=== PATIENT | female | born 1965 | race African-American/Black ===

== ENCOUNTER 2025-05-30 16:24 | Emergency (ER) | payer OTHER, SELFPAY ==
[~2025-05-30] VITALS: Ht 157.5 cm; Wt 91.2 kg
--- NOTE | 2025-05-30 17:42 | ED.PDOC ---
Eye-HPI HPI Comments 59-year-old female presents to the ER with a chief complaint of tooth pain. Patient reports on having left upper tooth pain which started yesterday. Patient notes that she has not scheduled an appointment with a dentist but we will do so. Denies chills, fever, N/V/D, SOB, CP. No other associated symptoms, modifiers, recent injuries or sick contacts present at this time. Chief Complaint: Tooth Pain Time Seen by MD: 17:40 Primary Care Provider: SASHA Preston Notes: Nurses Notes, Medications, Allergies Allergies: Coded Allergies: Tramadol (Verified Allergy, Unknown, 05/30/25) Home Meds Active Scripts Cefdinir (Cefdinir) 300 Mg Cap, 300 MG PO BID for 10 Days, #20 CAP Prov:CAIT SAAVEDRA MD 05/30/25 Naproxen (Naproxen) 375 Mg Tab, 375 MG PO TID for 10 Days, #30 TAB Prov:CAIT SAAVEDRA MD 05/30/25 Information Source: Patient Mode of Arrival: Ambulatory Timing: Hours Duration: Since onset, Hours Prehospital treatment: None Quality: Pain Lids: Normal Conjunctiva: Normal Cornea: Normal Pupils: Normal EOM: Normal Fundus: Normal Slit lamp exam: Normal Anterior chamber: Normal Mouth: Normal ENT Ear Exam: Normal, Normal, Normal Nose: Normal Sinuses: Normal Oropharynx: Normal Onset: Spontaneous Throat Exposed to: None Associated signs and symptoms: Tooth Pain Past Medical History PAST MEDICAL HISTORY: Denies Surgical History: Denies all surgeries BLADE OPERATOR History: No Pertinent BLADE OPERATOR History Family History Family History: Reviewed,noncontributory to illness, Unknown Social History Smoker: Non-Smoker Alcohol: Denies ETOH Use Drugs: Denies Drug Use Lives In: Home Constitutional: denies: chills, diaphoresis, fatigue, fever, malaise, sweats, weakness, others EENTM: reports: mouth pain; denies: blurred vision, double vision, ear bleeding, ear discharge, ear drainage, ear pain, ear ringing, eye pain, eye redness, hearing loss, mouth swelling, nasal discharge, nose bleeding, nose congestion, nose pain, photophobia, tearing, throat pain, throat swelling, voice changes, others Respiratory: denies: cough, hemoptysis, orthopnea, SOB at rest, shortness of breath, SOB with excertion, stridor, wheezing, others Cardiovascular: denies: chest pain, dizzy spells, diaphoresis, Dyspnea on exertion, edema, irregular heart beat, left arm pain, lightheadedness, palpitations, PND, syncope, others Gastrointestinal: denies: abdomen distended, abdominal pain, blood streaked bowels, constipated, diarrhea, dysphagia, difficulty swallowing, hematemesis, melena, nausea, poor appetite, poor fluid intake, rectal bleeding, rectal pain, vomiting, others Genitourinary: denies: abnormal vagina bleeding, burning, dyspareunia, dysuria, flank pain, frequency, hematuria, incontinence, pain, , vagina discharge, urgency, others Neurological: denies: dizziness, fainting, headache, left sided numbness, left sided weakness, numbness, paresthesia, pre-existing deficit, right sided numbness, right sided weakness, seizure, speech problems, tingling, tremors, weakness, others Musculoskeletal: denies: back pain, gout, joint pain, joint swelling, muscle pain, muscle stiffness, neck pain, others Integumetry: denies: bruises, change in color, change in hair/nails, dryness, laceration, lesions, lumps, rash, wounds, others Allergic/Immunocompromised: denies: Difficulty Healing, Frequent Infections, Hives, Itching, others Hematologic/Lymphatic: denies: anemia, blood clots, easy bleeding, easy bruising, swollen glands, others Endocrine: denies: excessive hunger, excessive sweating, excessive thirst, excessive urination, flushing, intolerance to cold, intolerance to heat, unexplained weight gain, unexplained weight loss, others Psychiatric: denies: anxiety, bipolar disorder, depression, hopeless, panic disorder, schizophrenia, sleepless, suicidal, others All Other Systems: Reviewed and Negative Physical Exam General Appearance: Moderate Distress, Obese HEENT: Normal ENT Inspection, PERRL/EOMI, Pharynx Normal, TMs Normal, Other (Caries of the upper teeth on the left side) Neck: Full Range of Motion, Non-Tender, Normal, Normal Inspection Respiratory: Chest Non-Tender, Lungs Clear, No Accessory Muscle Use, No Respiratory Distress, Normal Breath Sounds Cardiovascular: No Edema, No JVD, No Murmur, No Gallop, Normal Peripheral Pulses, Regular Rate/Rhythm Breast Exam: Deferred Gastrointestinal: No Organomegaly, Non Tender, No Pulsatile Mass, Normal Bowel Sounds, Soft Genitalia: Deferred Pelvic: Deferred Rectal: Deferred Extremities: No calf tenderness, Normal capillary refill, Normal inspection, Normal range of motion, Non-tender, No pedal edema Musculoskeletal : Apperance: Normal Neurologic: Alert, chain repairer II-XII nml as Tested, No Motor Deficits, Normal Affect, Normal Mood, No Sensory Deficits Cerebellar Function: Normal Reflexes: Normal Skin: Dry, Normal Color, Warm Peripheral Pulses: 1+ carotid (R), 1+ carotid (L) Lymphatic: No Adenopathy Was a procedure done? Was a procedure done?: No EENT DIFF Eye: Other Ear: N/A Nose: N/A Mouth: N/A Sore Throat: N/A Other Differential Diagnosis Tooth pain in infection X-Ray, Labs, Meds, VS Vital Signs Date Time Temp Pulse Resp B/P (MAP) Pulse Ox O2 Delivery O2 Flow Rate FiO2 05/30/25 17:43 98.2 73 18 133/81 (98) 98 98.2 05/30/25 17:43 73 18 98 Room Air 05/30/25 16:28 99.1 88 18 124/77 98 99.1 X-Ray, Labs, Meds, VS Comment 59-year-old female presented to the [facility] because of tooth infection and she has no money she said to pay for dentist suggested that she goes to [place] Time of 1ST Reevaluation: 18:10 Reevaluation 1ST: Unchanged Time of 2ND Reevaluation: 17:49 Reevaluation 2ND: Unchanged Consultation: PCP, Other Patient Education/Counseling: Diagnosis, Treatment, Prognosis, Need For Follow Up Family Education/Counseling: Diagnosis, Treatment, Prognosis, Need For Follow Up, No Family Present SEPSIS Sepsis Screen Date sepsis recognized/suspect: May 30, 2025 Time Sepsis recognized/suspect: 1630 Recent Procedure: No On Antibiotic Therapy: No Respiratory Rate >20: No Heart Rate >90: No Temp<36 C (96.8 F) or >38.3 C: No SBP <90 or MAP <65 mmHG: No New Acute Mental Status Change: No Is the patient on CPAP, BIPAP,: No Vital Signs Date Time Temp Pulse Resp B/P (MAP) Pulse Ox O2 Delivery O2 Flow Rate FiO2 05/30/25 17:43 98.2 73 18 133/81 (98) 98 98.2 05/30/25 17:43 73 18 98 Room Air 05/30/25 16:28 99.1 88 18 124/77 98 99.1 Departure 1 Departure Time of Disposition: 17:50 Impression: Primary Impression: Infection of tooth Disposition: HOME / SELF CARE / HOMELESS Condition: Fair Additional Instructions: Mouthwash with peroxide e-Prescriptions Cefdinir (Cefdinir) 300 Mg Cap 300 MG PO BID for 10 Days, #20 CAP Prov: CAIT SAAVEDRA MD 05/30/25 Naproxen (Naproxen) 375 Mg Tab 375 MG PO TID for 10 Days, #30 TAB Prov: CAIT SAAVEDRA MD 05/30/25 Discharged With: Self Critical Care Note Critical Care Time?: No Stability Stability form required: No Heart Score Heart Score: Heart Score Response (Comments) Value History N/A 0 EKG N/A 0 Age 45-64 1 Risk Factors No known risk factors 0 Troponin N/A 0 Total 1 I personally scribed for CAIT SAAVEDRA MD ([email or web address]) on 05/30/25 at 17:42. Elec tronically submitted by [employer] ([email or web address]). CAIT SAAVEDRA MD May 30, 2025 17:42
[2025-05-30 17:43] VITALS: BP 133/81; PULSE 73; RESP 18; TEMP 98.2; O2SAT 98
[2025-05-30] MEDS ORDERED: CEFD300C2 PO (17:52)
[2025-05-30] MEDS ORDERED: NAPR-957 PO (17:52)
== END 2025-05-30 18:11 | disposition home or self-care (01) ==
LOC: ER 16:26
DX: K04.7 Periapical abscess without sinus (principal); Z88.5 Allergy status to narcotic agent

== ENCOUNTER 2025-06-03 18:07 | Emergency (ER) | payer SELFPAY ==
[~2025-06-03] VITALS: Ht 157.5 cm; Wt 91.4 kg
[~2025-06-03 18:07] MED LIST: CEFD300C2 PO; NAPR-957 PO
[2025-06-03] MEDS ORDERED: AMOX875T4 PO (18:21)
[2025-06-03] MEDS ORDERED: IBUP-1456 PO (18:21)
--- NOTE | 2025-06-03 18:21 | ED.PDOC ---
Eye-HPI HPI Comments 59-YEAR-OLD FEMALE PRESENTS TO ER WITH COMPLAINTS OF LEFT-SIDED TOOTHACHE PAIN X1 WEEK. PATIENT REPORTS THAT SHE HAS BEEN EXPERIENCING LEFT UPPER TOOTHACHE PAIN X1 WEEK. SHE RATES HER CURRENT PAIN A 9/10 AND REPORTS THAT SHE WAS SEEN AND EVALUATED IN ER HERE FOUR DAYS AGO FOR HER SYMPTOMS AND PRESCRIBED CEFDINIR ANTIBIOTICS THAT SHE HAS BEEN TAKING WITHOUT RELIEF. NOTES SHE HAS NOT BEEN ABLE TO FOLLOW UP WITH A DENTIST YET DUE TO "INSURANCE ISSUES" AND PRESENTS TO ER AMBULATORY ON ARRIVAL, IN NO DISTRESS WITH VITALS STABLE. DENIES FEVER, BODY ACHES, CHILLS, HEADACHE, NAUSEA/VOMITING, FACIAL SWELLING/SKIN CHANGES OR ANY FURTHER SYMPTOMS/COMPLAINTS Chief Complaint: Abscess Time Seen by MD: 18:13 Primary Care Provider: SASHA Preston Notes: Nurses Notes, Medications, Allergies Allergies: Coded Allergies: Tramadol (Verified Allergy, Unknown, 05/30/25) Home Meds Active Scripts Ibuprofen (Ibuprofen) 800 Mg Tab, 1 TAB PO TID PRN, #30 TAB 0 Refills Prov:FARIBA PETERSEN 06/03/25 Amoxicillin & Pot Clavulanate (Amoxicillin/Potassium Cla) 875 Mg Tab, 1 TAB PO BID for 7 Days, #14 TAB 0 Refills Prov:FARIBA PETERSEN 06/03/25 Cefdinir (Cefdinir) 300 Mg Cap, 300 MG PO BID for 10 Days, #20 CAP Prov:CAIT SAAVEDRA MD 05/30/25 Naproxen (Naproxen) 375 Mg Tab, 375 MG PO TID for 10 Days, #30 TAB Prov:CAIT SAAVEDRA MD 05/30/25 Information Source: Patient Mode of Arrival: Ambulatory Past Medical History PAST MEDICAL HISTORY: Denies Surgical History: Denies all surgeries SAND WORKER History: No Pertinent SAND WORKER History Family History Family History: Unknown Social History Smoker: Non-Smoker Alcohol: Denies ETOH Use Drugs: Denies Drug Use Lives In: Home Constitutional: denies: chills, diaphoresis, fatigue, fever, malaise, sweats, weakness, others EENTM: reports: others ( STATED IN HPI) Respiratory: denies: cough, hemoptysis, orthopnea, SOB at rest, shortness of breath, SOB with excertion, stridor, wheezing, others Cardiovascular: denies: chest pain, dizzy spells, diaphoresis, Dyspnea on exertion, edema, irregular heart beat, left arm pain, lightheadedness, palpitations, PND, syncope, others Gastrointestinal: denies: abdomen distended, abdominal pain, blood streaked bowels, constipated, diarrhea, dysphagia, difficulty swallowing, hematemesis, melena, nausea, poor appetite, poor fluid intake, rectal bleeding, rectal pain, vomiting, others Genitourinary: denies: abnormal vagina bleeding, burning, dyspareunia, dysuria, flank pain, frequency, hematuria, incontinence, pain, , vagina discharge, urgency, others Neurological: denies: dizziness, fainting, headache, left sided numbness, left sided weakness, numbness, paresthesia, pre-existing deficit, right sided numbness, right sided weakness, seizure, speech problems, tingling, tremors, weakness, others Musculoskeletal: denies: back pain, gout, joint pain, joint swelling, muscle pain, muscle stiffness, neck pain, others Integumetry: denies: bruises, change in color, change in hair/nails, dryness, laceration, lesions, lumps, rash, wounds, others Allergic/Immunocompromised: denies: Difficulty Healing, Frequent Infections, Hives, Itching, others Hematologic/Lymphatic: denies: anemia, blood clots, easy bleeding, easy bruising, swollen glands, others Endocrine: denies: excessive hunger, excessive sweating, excessive thirst, excessive urination, flushing, intolerance to cold, intolerance to heat, unexplained weight gain, unexplained weight loss, others Psychiatric: denies: anxiety, bipolar disorder, depression, hopeless, panic dis order, schizophrenia, sleepless, suicidal, others Physical Exam General Appearance: No Apparent Distress, Obese HEENT: PERRL/EOMI, Pharynx Normal, TMs Normal, Other (BROKEN LEFT UPPER WISDOM TOOTH NOTED WITH MILD SURROUNDING GUM ERYTHEMA/SWELLING, NO DRAINAGE/BLEEDING NOTED. NO FACIAL SWELLING/SKIN CHANGES APPRECIATED) Neck: Full Range of Motion, Non-Tender, Normal Respiratory: Chest Non-Tender, Lungs Clear, No Accessory Muscle Use, No Respiratory Distress, Normal Breath Sounds Cardiovascular: No Murmur, No Gallop, Regular Rate/Rhythm Breast Exam: Deferred Gastrointestinal: NOT DONE Genitalia: Deferred Pelvic: Deferred Rectal: Deferred Extremities: Normal capillary refill, Normal range of motion Neurologic: Alert, rn camp II-XII nml as Tested, No Motor Deficits, Normal Affect, Normal Mood, No Sensory Deficits Cerebellar Function: Normal Reflexes: Normal Skin: Dry, Normal Color, Warm Lymphatic: No Adenopathy Was a procedure done? Was a procedure done?: No Sedation Sedation?: No EENT DIFF Eye: N/A Mouth: Thrush, Other (DENTAL ABSCESS, ROCK'S ANGINA) X-Ray, Labs, Meds, VS Vital Signs Date Time Temp Pulse Resp B/P (MAP) Pulse Ox O2 Delivery O2 Flow Rate FiO2 06/03/25 18:08 97.9 74 15 113/85 98 97.9 PREVIOUS CHART VISIT WAS REVIEWED ROCEPHIN 1 G IM ORDERED HURRICANE SPRAY ORDERED, PATIENT EDUCATED ON PROPER USE/DOSAGE ADVISED TO DISCONTINUE CEFDINIR ANTIBIOTICS AND TAKE THE FOLLOWING ANTIBIOTICS BELOW PRESCRIBED PATIENT PROVIDED RESOURCE INFORMATION WITH REGARDS TO LOCAL DENTISTS AND PCPS AND ADVISED TO FOLLOW UP IN 1-2 DAYS PATIENT VERBALIZED UNDERSTANDING AND AGREEABLE WITH CURRENT PLAN OF CARE ADVISED TO RETURN TO ER IMMEDIATELY IF SYMPTOMS WORSEN Time of 1ST Reevaluation: 18:04 Reevaluation 1ST: N/A Patient Education/Counseling: Diagnosis, Treatment, Prognosis, Need For Follow Up Family Education/Counseling: No Family Present SEPSIS Sepsis Screen Date sepsis recognized/suspect: Jun 03, 2025 Time Sepsis recognized/suspect: 1810 Recent Procedure: No On Antibiotic Therapy: No Respiratory Rate >20: No Heart Rate >90: No Temp<36 C (96.8 F) or >38.3 C: No SBP <90 or MAP <65 mmHG: No New Acute Mental Status Change: No Is the patient on CPAP, BIPAP,: No Physician Orders Benzocaine (Dental) [place] (Hurricaine Sp (06/03/25 18:30) Ceftriaxone Sodium (Rocephin) (06/03/25 18:30) Vital Signs Date Time Temp Pulse Resp B/P (MAP) Pulse Ox O2 Delivery O2 Flow Rate FiO2 06/03/25 18:08 97.9 74 15 113/85 98 97.9 Departure 1 Departure Time of Disposition: 18:20 Impression: Primary Impression: Dental infection Disposition: HOME / SELF CARE / HOMELESS Condition: Stable e-Prescriptions Ibuprofen (Ibuprofen) 800 Mg Tab 1 TAB PO TID PRN, #30 TAB 0 Refills Prov: FARIBA PETERSEN 06/03/25 Amoxicillin & Pot Clavulanate (Amoxicillin/Potassium Cla) 875 Mg Tab 1 TAB PO BID for 7 Days, #14 TAB 0 Refills Prov: FARIBA PETERSEN 06/03/25 Discharged With: Self Critical Care Note Critical Care Time?: No Stability Stability form required: No Heart Score Heart Score: Heart Score Response (Comments) Value History N/A 0 EKG N/A 0 Age N/A 0 Risk Factors N/A 0 Troponin N/A 0 Total 0 FARIBA PETERSEN Jun 03, 2025 18:21
[2025-06-03] MEDS: BENZOCAINE (DENTAL) 20 % SPRAY 60ML MT ONE (18:30)
[2025-06-03] MEDS: cefTRIAXone SOD 1,000 MG VL IM ONE (18:35)
[2025-06-03] MEDS: LIDOCAINE 1% HCL (LOCAL ANESTH.) INJ 20ML MDV ONE (18:35)
[2025-06-03 18:41] VITALS: BP 113/85; PULSE 74; RESP 15; TEMP 97.9; O2SAT 98
== END 2025-06-03 18:44 | disposition home or self-care (01) ==
LOC: ER 18:07
DX: K04.7 Periapical abscess without sinus (principal); Z88.5 Allergy status to narcotic agent
CPT/HCPCS: 96372; 99283; J0696; J2003